=== PATIENT | female | born 1950 | race Caucasian/White ===

== ENCOUNTER 2024-08-06 16:01 | Emergency (ER) | payer MEDICARE, MEDICAID ==
[~2024-08-06] VITALS: Ht 160 cm; Wt 72.0 kg
[2024-08-06 16:03] VITALS: BP 193/89; PULSE 90; RESP 16; TEMP 97.7; O2SAT 98
[2024-08-06] MEDS ORDERED: DIPHENHYDRAMINE 25MG CAPSULE PO ONE (16:30)
== END 2024-08-06 21:30 | disposition home or self-care (01) ==
LOC: ER 16:01
DX: R53.1 Weakness (principal); E78.00 Pure hypercholesterolemia, unspecified; I10 Essential (primary) hypertension
CPT/HCPCS: 93005; 99283